=== PATIENT | male | born 1950 | race Caucasian/White ===

== ENCOUNTER 2020-02-09 09:07 | Inpatient (IN) | payer OTHER, MEDICARE ==
[~2020-02-09] VITALS: Ht 180.3 cm; Wt 114.3 kg
--- NOTE | 2020-02-09 09:20 | NUR ---
PATIENT AMBULATED TO ROOM USING A CANE AND PHYSICIAN NOTIFIED OF PATIENT STATUS
--- NOTE | 2020-02-09 10:00 | NUR ---
skin warm and dry. speaks complete sentences without difficulty. resp even unlabored. sats ra 98% a&ox3 charbel
[2020-02-09] MEDS ORDERED: NORVASC5 M1 PO (10:03)
[2020-02-09] MEDS ORDERED: AMOX/K CLAV875 M1 PO (10:03)
[2020-02-09] MEDS ORDERED: MOBIC15 MG PO (10:04)
[2020-02-09] MEDS ORDERED: CALCITRIOL0.25 MC1 PO (10:04)
[2020-02-09] MEDS ORDERED: ATENOLOL50 MG PO (10:04)
[2020-02-09] MEDS ORDERED: FUROSEMIDE20 MG PO (10:05)
[2020-02-09] MEDS ORDERED: PRILOSEC20 MG/CAP PO (10:05)
[2020-02-09] MEDS ORDERED: BENICAR40 MG PO (10:05)
[2020-02-09] MEDS ORDERED: FLONASE AL50 MCG/ACT NAB (10:06)
[2020-02-09] MEDS ORDERED: HYDROCHLOROT12.5 MG PO (10:07)
[2020-02-09] MEDS ORDERED: POTASSIUM CITR15 MEQ PO (10:07)
[2020-02-09] MEDS ORDERED: ASPIRIN81 MG PO (10:08)
[2020-02-09] MEDS ORDERED: CALCIUM 1200 PO (10:09)
[2020-02-09] MEDS ORDERED: MAGNESIUM500 M1 PO (10:10)
[2020-02-09] MEDS ORDERED: COLACE100 MG PO (10:11)
[2020-02-09] MEDS ORDERED: DORZOLAMIDE HYD1 SOL OU (10:12)
[2020-02-09] MEDS ORDERED: TRAVATAN0.0041 OU (10:12)
[2020-02-09 10:39] LABS: HEMATOCRIT 39.8 % (39.0-50.0); HEMOGLOBIN 13.2 g/dl (14.0-18.0); IMMATURE GRANULOCYTES 0.4 % (0.0-5.0); MEAN CELL VOLUME 88.8 fL CALC (80.0-100.0); MEAN CORPUSCULAR HGB 29.5 pG CALC (26.0-32.0); MEAN CORPUSCULAR HGB CONC 33.2 g/dL CAL (32.0-36.0); NEUT# 3.26 thou/uL (1.82-7.42); RED BLOOD COUNT 4.48 mill/uL (4.70-6.10); RED CELL DISTRI WIDTH 13.3 % (11.5-15.5)
[2020-02-09 10:56] LABS: ALBUMIN 3.8 g/dL (3.2-5.0); ALKALINE PHOSPHATASE 49 u/l (38-126); ANION GAP 8 (6-22 (CALC)); BILIRUBIN, TOTAL 0.8 mg/dL (0.0-1.4); BUN 24 mg/dL (8-23); BUN/CREATININE RATIO 19 (12-20 (CALC)); CARBON DIOXIDE 39 mmol/l (22-30); CHLORIDE 95 mmol/l (95-108); CREATININE 1.3 mg/dL (0.7-1.3); GFR 55 ML/MIN (>=60 (CALC)); GFR FOR AFR.AMER. > 60 ML/MIN (>=60 (CALC)); POTASSIUM 2.9 mmol/l (3.5-5.1); SGOT/AST 51 u/l (19-48); SODIUM 139 mmol/l (137-146); TOTAL PROTEIN 6.4 g/dL (6.3-8.2)
[2020-02-09 11:08] LABS: MYOGLOBIN 118 ng/mL (0 - 121)
--- NOTE | 2020-02-09 11:36 | NUR ---
PT TO CT IN STABLE CONDITION.
--- NOTE | 2020-02-09 12:25 | NUR ---
PT ADVISED OF POC FOR ADMISSION. PT VOICED UNDERSTANDING.
--- NOTE | 2020-02-09 12:37 | NUR ---
SBAR PRINTED TO FLOOR
[2020-02-09 13:12] LABS: URINE BILIRUBIN - DIPSTICK NEGATIVE (NEGATIVE); URINE BLOOD DIPSTICK TRACE-INTACT (NEGATIVE); URINE COLOR YELLOW; URINE GLUCOSE - DIPSTICK NEGATIVE (NEGATIVE); URINE KETONE NEGATIVE (NEGATIVE); URINE LEUK ESTERASE NEGATIVE (NEGATIVE); URINE NITRITE - DIPSTICK NEGATIVE (Negative); URINE PROTEIN - DIPSTICK NEGATIVE (NEG-TRACE); URINE UROBILINOGEN - DIPSTICK 0.2 E.U./dL (0.2)
--- NOTE | 2020-02-09 13:26 | NUR ---
REPORT PROVIDED TO YANET SMITH.
--- NOTE | 2020-02-09 13:30 | NUR ---
PT TO MEDSURG VIA WC. IV ABT IN PROGRESS, 02 2L/M VIA NC, TELEMETRY. PT STABLE.
[2020-02-09 13:45] VITALS: BP 142/70
--- NOTE | 2020-02-09 14:18 | NUR ---
REPORT RECEIVED FROM NAMRATA IN ED, PT ARRIVED ON UNIT @ 1338 VIA W/C TRANSPORTED BY ED STAFF, ALERT AND ORIENTED X 4, ORIENTED TO ROOM AND CALL JOSEPH, DENIES PAIN AT THIS TIME, SETTLED IN BED, VITAL SINS MEASURED AND RECORDED, WILL CONTINUE TO MONITOR.
[2020-02-09 15:57] VITALS: BP 124/67
[2020-02-09 19:00] VITALS: BP 118/64
--- NOTE | 2020-02-09 20:00 | NUR ---
PT SITTING UP IN BED, NO APPARENT DISTRESS OR DISCOMFORT. PHYSICAL ASSESMENT COMPLETE. SCHEDULED MEDICATION ADMINISTERED, SEE E-MAR. PLAN OF CARE REVIEWED, PT VERBALIZES UNDERSTANDING AND DENIES QUESTIONS. PT REQUEST REFILL OF ICE WATER AND CRANBERRY JUICE. DENIES FURTHER NEEDS AT THIS TIME. CALL JOSEPH WITHIN REACH, AGREES TO CALL PRN.
--- NOTE | 2020-02-09 23:58 | NUR ---
PT LAYING IN BED WITH EYES CLOSED, NO APPARENT DISTRESS, APPEARS TO BE SLEEPING COMFORTABLY. RESPIRATIONS REGULAR AND UNLABORED. CALL JOSEPH REMAINS WITHIN REACH.
[2020-02-10] VITALS: BP 138/64
[2020-02-10 04:00] VITALS: BP 130/77; BP 138/64
--- NOTE | 2020-02-10 04:00 | NUR ---
PT LAYING IN BED WITH EYES CLOSED, NO APPARENT DISTRESS, APPEARS TO BE SLEEPING COMFORTABLY. RESPIRATIONS REGULAR AND UNLABORED. CALL JOSEPH REMAINS WITHIN REACH.
[2020-02-10 05:51] LABS: HEMATOCRIT 44.5 % (39.0-50.0); HEMOGLOBIN 14.8 g/dl (14.0-18.0); IMMATURE GRANULOCYTES 0.3 % (0.0-5.0); MEAN CELL VOLUME 87.6 fL CALC (80.0-100.0); MEAN CORPUSCULAR HGB 29.1 pG CALC (26.0-32.0); MEAN CORPUSCULAR HGB CONC 33.3 g/dL CAL (32.0-36.0); NEUT# 4.84 thou/uL (1.82-7.42); RED BLOOD COUNT 5.08 mill/uL (4.70-6.10); RED CELL DISTRI WIDTH 12.5 % (11.5-15.5)
[2020-02-10 06:29] LABS: ALBUMIN 3.9 g/dL (3.2-5.0); ALKALINE PHOSPHATASE 57 u/l (38-126); ANION GAP 10 (6-22 (CALC)); BILIRUBIN, TOTAL 0.7 mg/dL (0.0-1.4); BUN 19 mg/dL (8-23); BUN/CREATININE RATIO 21 (12-20 (CALC)); CARBON DIOXIDE 36 mmol/l (22-30); CHLORIDE 99 mmol/l (95-108); CREATININE 0.9 mg/dL (0.7-1.3); GFR > 60 ML/MIN (>=60 (CALC)); GFR FOR AFR.AMER. > 60 ML/MIN (>=60 (CALC)); SGOT/AST 46 u/l (19-48); SODIUM 142 mmol/l (137-146); TOTAL PROTEIN 6.8 g/dL (6.3-8.2)
[2020-02-10 06:41] LABS: C-REACTIVE PROTEIN 12.7 mg/dL (0-0.9)
[2020-02-10 07:57] VITALS: BP 124/64
--- NOTE | 2020-02-10 08:14 | NUR ---
PT SEEN AWAKE, ALERT, ORIENTED X 3. IV SITE TO RAC INFILTRATED, NEW ONE PLACED TO LEFT HAND. PT EDUCATION REGARDING COVID-19 PROVIDED. NO DISTRESS.
[2020-02-10 11:00] VITALS: BP 124/65
--- NOTE | 2020-02-10 13:40 | NUR ---
PT USING IS EVERY HOUR DIRECTED. NO SHORTNESS OF BREATH NOTED.
[2020-02-10 15:00] VITALS: BP 129/67
--- NOTE | 2020-02-10 18:00 | NUR ---
PT CONTINUES AT REST IN THE BED WITHOUT COMPLAINT OR CHANGE IN STATUS.
[2020-02-10 19:30] VITALS: BP 120/71
[2020-02-11 00:05] VITALS: BP 131/68
[2020-02-11 04:20] VITALS: BP 145/72
[2020-02-11 05:03] LABS: MEAN CELL VOLUME 88.1 fL CALC (80.0-100.0); MEAN CORPUSCULAR HGB CONC 32.9 g/dL CAL (32.0-36.0); NEUT# 9.82 thou/uL (1.82-7.42); RED BLOOD COUNT 4.28 mill/uL (4.70-6.10); RED CELL DISTRI WIDTH 12.7 % (11.5-15.5)
[2020-02-11 05:15] LABS: HEMATOCRIT 37.7 % (39.0-50.0); HEMOGLOBIN 12.4 g/dl (14.0-18.0)
[2020-02-11 05:31] LABS: ALKALINE PHOSPHATASE 47 u/l (38-126); ANION GAP 8 (6-22 (CALC)); BILIRUBIN, TOTAL 0.5 mg/dL (0.0-1.4); BUN 18 mg/dL (8-23); BUN/CREATININE RATIO 22 (12-20 (CALC)); CARBON DIOXIDE 34 mmol/l (22-30); CHLORIDE 103 mmol/l (95-108); CREATININE 0.8 mg/dL (0.7-1.3); GFR > 60 ML/MIN (>=60 (CALC)); GFR FOR AFR.AMER. > 60 ML/MIN (>=60 (CALC)); POTASSIUM 3.3 mmol/l (3.5-5.1); SGOT/AST 37 u/l (19-48); SODIUM 142 mmol/l (137-146)
[2020-02-11 05:36] LABS: TOTAL PROTEIN 5.4 g/dL (6.3-8.2)
[2020-02-11 07:40] VITALS: BP 131/73
--- NOTE | 2020-02-11 09:00 | NUR ---
PT IS AWAKE, ALERT, ORIENTED X 3, PLEASANT. LUNGS CLEAR, 2 LPM NC. AMBULATORY IN ROOM WITHOUT DIFFICULTY. NO SHORTNESS OF BREATH OR OTHER COMPLAINT.
[2020-02-11 11:05] VITALS: BP 115/64
--- NOTE | 2020-02-11 13:00 | NUR ---
PT CONTINUES IN ROOM WITHOUT SHORTNESS OF BREATH OR OTHERWISE. PT USES I.S. IV INFUSES WITHOUT DIFFICULTY.
[2020-02-11 15:15] VITALS: BP 118/58
[2020-02-11 18:55] VITALS: BP 112/61
[2020-02-12] VITALS: BP 128/69
[2020-02-12 04:05] VITALS: BP 132/72
[2020-02-12 05:57] LABS: HEMATOCRIT 36.6 % (39.0-50.0); HEMOGLOBIN 12.3 g/dl (14.0-18.0); IMMATURE GRANULOCYTES 1.3 % (0.0-5.0); MEAN CELL VOLUME 89.5 fL CALC (80.0-100.0); MEAN CORPUSCULAR HGB 30.1 pG CALC (26.0-32.0); MEAN CORPUSCULAR HGB CONC 33.6 g/dL CAL (32.0-36.0); NEUT# 6.24 thou/uL (1.82-7.42); RED BLOOD COUNT 4.09 mill/uL (4.70-6.10); RED CELL DISTRI WIDTH 12.9 % (11.5-15.5)
[2020-02-12 06:24] LABS: ALBUMIN 2.9 g/dL (3.2-5.0); ALKALINE PHOSPHATASE 47 u/l (38-126); ANION GAP 6 (6-22 (CALC)); BILIRUBIN, TOTAL 0.5 mg/dL (0.0-1.4); BUN 20 mg/dL (8-23); BUN/CREATININE RATIO 22 (12-20 (CALC)); C-REACTIVE PROTEIN 4.2 mg/dL (0-0.9); CARBON DIOXIDE 34 mmol/l (22-30); CHLORIDE 106 mmol/l (95-108); CREATININE 0.9 mg/dL (0.7-1.3); GFR > 60 ML/MIN (>=60 (CALC)); GFR FOR AFR.AMER. > 60 ML/MIN (>=60 (CALC)); POTASSIUM 3.3 mmol/l (3.5-5.1); SGOT/AST 31 u/l (19-48); SODIUM 142 mmol/l (137-146); TOTAL PROTEIN 5.3 g/dL (6.3-8.2)
--- NOTE | 2020-02-12 07:10 | NUR ---
PT note Patient is screened for PT intervention and may benefit from consult if medical agrees
[2020-02-12 07:38] VITALS: BP 130/70
--- NOTE | 2020-02-12 07:38 | NUR ---
PATIENT RESTING IN BED AT THIS TIME. PATIENT ALERT AND ORIENTED. LUNG FIELD CLEAR AT THIS TIME AND O2 REMAINS ON AT 3 LITERS. PATIENT STATED HE HAD THE BEST NIGHT SLEEP WHILE USING HIS CPAP AND O2 ON. PATIENT DENIES ANY PAIN AT THIS TIME AND SHAKEEL ANY SHORTNESS OF BREATH. CALL LIGHT IS WITHIN REACH SIDERAILS UP X 2. GEOMATICS PROFESSOR DONE AT THIS TIME.
[2020-02-12 10:30] VITALS: BP 115/58
--- NOTE | 2020-02-12 12:20 | NUR ---
PATIENT IN BED AT THIS TIME DENIES ANY NEEDS CURRENTLY. DENIES PAIN O2 REMAINS ON AT THIS TIME AT 3 LITERES SIDERAILS UP X 2 CALL LIGHT WITHIN REACH.
[2020-02-12 16:00] VITALS: BP 126/56
--- NOTE | 2020-02-12 16:01 | NUR ---
PATIENT RESTING IN BED AT THIS TIME DENIES ANY NEEDS OR PAIN. SIDERAILS UP X [address] AND TELE-MONITOR REMAINS ON AT THIS TIME. PATIENT STATES HE WILL BE HAVING EYE MEDICATIONS BROUGHT INTO FACILITY TONIGHT BY FAMILY.
[2020-02-12 19:00] VITALS: BP 113/56
--- NOTE | 2020-02-12 19:10 | NUR ---
REPORT RECEIVED FROM Nomi MOON RN, CARE OF PT ASSUMED AT THIS TIME.
--- NOTE | 2020-02-12 21:30 | NUR ---
PT AWAKE, LAYING IN BED, 200ML CLEAR YELLOW URINE EMPTIED FROM URINAL. PHYSICAL ASSESMENT COMPLETE. SCHEDULED MEDICATIONS ADMINISTERED. PLAN OF CARE REVIEWED, PT VERBALIZES UNDERSTANDING AND DENIES QUESTIONS. DENIES ANY NEEDS AT THIS TIME WHEN ASKED. CALL JOSEPH WITHIN REACH, AGREES TO CALL PRN.
[2020-02-13] VITALS: BP 135/69
--- NOTE | 2020-02-13 00:15 | NUR ---
PT LAYING IN BED WITH EYES CLOSED, NO APPARENT DISTRESS, APPEARS TO BE SLEEPING COMFORTABLY. RESPIRATIONS REGULAR AND UNLABORED. CALL JOSEPH REMAINS WITHIN REACH.
[2020-02-13 04:00] VITALS: BP 152/77
--- NOTE | 2020-02-13 04:17 | NUR ---
PT LAYING IN BED WITH EYES CLOSED, NO APPARENT DISTRESS, APPEARS TO BE SLEEPING COMFORTABLY. RESPIRATIONS REGULAR AND UNLABORED. CALL JOSEPH REMAINS WITHIN REACH.
[2020-02-13 05:43] LABS: HEMATOCRIT 38.9 % (39.0-50.0); HEMOGLOBIN 13.1 g/dl (14.0-18.0); IMMATURE GRANULOCYTES 2.3 % (0.0-5.0); MEAN CELL VOLUME 88.2 fL CALC (80.0-100.0); MEAN CORPUSCULAR HGB 29.7 pG CALC (26.0-32.0); MEAN CORPUSCULAR HGB CONC 33.7 g/dL CAL (32.0-36.0); NEUT# 5.75 thou/uL (1.82-7.42); RED BLOOD COUNT 4.41 mill/uL (4.70-6.10); RED CELL DISTRI WIDTH 12.9 % (11.5-15.5)
[2020-02-13 05:49] LABS: ALBUMIN 2.8 g/dL (3.2-5.0); ALKALINE PHOSPHATASE 54 u/l (38-126); BILIRUBIN, TOTAL 0.4 mg/dL (0.0-1.4); BUN 17 mg/dL (8-23); BUN/CREATININE RATIO 20 (12-20 (CALC)); C-REACTIVE PROTEIN 2.8 mg/dL (0-0.9); CHLORIDE 108 mmol/l (95-108); CREATININE 0.9 mg/dL (0.7-1.3); GFR > 60 ML/MIN (>=60 (CALC)); GFR FOR AFR.AMER. > 60 ML/MIN (>=60 (CALC)); SGOT/AST 42 u/l (19-48); SODIUM 141 mmol/l (137-146); TOTAL PROTEIN 5.1 g/dL (6.3-8.2)
[2020-02-13 06:28] LABS: ANION GAP 9 (6-22 (CALC)); CARBON DIOXIDE 27 mmol/l (22-30); POTASSIUM 3.2 mmol/l (3.5-5.1)
[2020-02-13 07:00] VITALS: BP 119/67
--- NOTE | 2020-02-13 07:00 | NUR ---
PATIENT RESTING IN BED AT THIS TIME. PATIENT DENIES ANY PAIN AND DOES EXHIBIT A NON-PRODUCTIVE COUGH AT THIS TIME. PATIENT HAS O2 ON AT 3 LITERS AND SPO2 IS 97% AT THIS TIME. SIDERAILS ARE UP X 2 CALL LIGHT IS WITHIN REACH WIRE WELDER IS IN PLACE AT THIS TIME. PATIENT IS ALERT AND ORIENTED.
--- NOTE | 2020-02-13 09:05 | NUR ---
PATIENT UP ON BEDSIDE AFTER SHOWER. DEBBIE SPO2 AT ROOM AIR IS 96%. ALISSAN PREVIOUSLY WAS ON 3 L OF 02 AND NOW IS TITRATED DOWN TO 2 L'S AT THIS TIME AND WILL RE-CHECK SPO2 AGAIN IN ONE HOUR.
[2020-02-13 11:36] VITALS: BP 120/60
--- NOTE | 2020-02-13 11:54 | NUR ---
PATIENT SITTING UP AT BEDSIDE AT THIS TIME DENIES ANY NEEDS. O2 ON AT 2LITERS AND SPO2 IS 94%. PATIENT DENIES ANY SHORTNESS OF BREATH AND DENIES PAIN AT THIS TIME. CALL LIGHT WITHIN REACH SIDERAILS UP X 2.
[2020-02-13 15:00] VITALS: BP 114/67
--- NOTE | 2020-02-13 16:05 | NUR ---
PATIENT RESTING DENIES ANY NEEDS AT THIS TIME CALL O2 ON 2 LITERS AT THIS TIME SHAKEEL ANY SHORTNESS OF BREATH AND OR PAIN. TELE MONITOR IN PLACE CALL LIGHT WITHIN REACHI SIDERAILS UP X 2.
[2020-02-13 19:00] VITALS: BP 136/70
--- NOTE | 2020-02-13 21:24 | NUR ---
PT MEDICATED ORDERS PROVIDE. ASSESSMENT COMPLETED AT THIS TIME. PT WAS ASLEEP WITH CPAP ON, BUT AWOKE TO MY VOICE. HE IS WEARING OXYGEN NC UNDER HIS CPAP. OXYGEN SET AT 2L WITH SAT LEVELS 97% OXYGEN TITRATED DOWN TO 1L WITH MONITOR CLOSELY FOR RESPONSE. PT UP USING URINAL AT THIS TIME, NO S/O DISTRESS OR SOB. CALL LIGHT IS AT BEDSIDE AND PT INSTRUCTED TO CALL IF NEEDS ARISE.
--- NOTE | 2020-02-13 21:50 | NUR ---
OXYGEN SAT LEVEL STABLE @96% ON 1L OXYGEN. URINAL EMPTIED OF 400CC OF CLEAR YELLOW URINE AT THIS TIME.
[2020-02-14] VITALS: BP 130/71
--- NOTE | 2020-02-14 00:28 | NUR ---
OXYGEN SAT LEVEL MAINTAINED ON 1L 02 @94% AND UP. NO S/O DISTRESS NOTED. PT HAS O2 NC ON WITH CPAP.
[2020-02-14 04:00] VITALS: BP 156/83
--- NOTE | 2020-02-14 05:29 | NUR ---
PT OXYGEN SAT LEVELS 97% ON 1L. TITRATED OFF OXYGEN SUSTAINING 95-97% ON RA AT THIS TIME. WILL CONTINUE TO MONITOR FOR RESPONSE. OXYGEN NC LEFT AT BEDSIDE WITHIN REACH FOR OXYGEN PRN FOR SOB NEEDED, PT VERBALIZED UNDERSTANDING. URINAL EMPTIED OF 800CC OF CLEAR YELLOW URINE AT THIS TIME. PT DENIES ANY OTHER NEEDS. CALL LIGHT W/IN REACH AND PT WAS ENCOURAGED TO CALL.
[2020-02-14 06:07] LABS: ALBUMIN 2.9 g/dL (3.2-5.0); ALKALINE PHOSPHATASE 51 u/l (38-126); ANION GAP 7 (6-22 (CALC)); BUN 15 mg/dL (8-23); BUN/CREATININE RATIO 19 (12-20 (CALC)); CARBON DIOXIDE 29 mmol/l (22-30); CHLORIDE 107 mmol/l (95-108); CREATININE 0.8 mg/dL (0.7-1.3); GFR > 60 ML/MIN (>=60 (CALC)); GFR FOR AFR.AMER. > 60 ML/MIN (>=60 (CALC)); POTASSIUM 3.1 mmol/l (3.5-5.1); SGOT/AST 46 u/l (19-48); SODIUM 140 mmol/l (137-146); TOTAL PROTEIN 5.4 g/dL (6.3-8.2)
[2020-02-14 06:09] LABS: BILIRUBIN, TOTAL 0.6 mg/dL (0.0-1.4)
--- NOTE | 2020-02-14 07:20 | NUR ---
REPORT RECEIVED FROM YANET LOPEZ.
[2020-02-14 09:00] VITALS: BP 135/61
--- NOTE | 2020-02-14 09:00 | NUR ---
PT RESTING IN SEMI FOWLERS POSITION,A&O X3;VS OBTAINED AND ASSESSMENT COMPLETED;PT DENIES ANY CURRENT PAIN OR DISCOMFORTS,PAIN SCALE AND REPORTING EDUCATED;RESPIRATIONS EVEN AND UNLABORED ON RA,O2 SATS @ 96% AT THIS TIME;NON-PRODUCTIVE COUGH;ABDOMEN SOFT ON PALPATION AND ACTIVE IN ALL 4 QUADRANTS;WEAK PEDAL PULSES;SKIN INTACT;TELE MONITORING IN PLACE;#20G TO LEFT HAND INFUSING NS @ 20ML/HR,SITE APPEARS HEALTHY;PT REMAINS IN AIR/CONTACT PRECAUTIONS DUE TO COVID19 DX;PT DENIES ANY ADDITIONAL NEEDS AT THIS TIME AND IS ENCOURAGED TO CALL FOR ASSISTANCE IF NEEDED;FALL PRECAUTIONS IN PLACE WITH BED IN THE LOWEST POSITION AND CALL LIGHT IN REACH;WILL CONTINUE TO MONITOR
--- NOTE | 2020-02-14 09:40 | NUR ---
AT BEDSIDE DISCUSSING POC.
[2020-02-14 10:30] VITALS: BP 125/77
[2020-02-14] MEDS ORDERED: Levaquin PO (11:24)
[2020-02-14] MEDS ORDERED: DEXAMETHASON6 MG PO (11:24)
--- NOTE | 2020-02-14 12:20 | NUR ---
PT RESTING IN SEMI FOWLERS POSITION;RESPIRATIONS EVEN AND UNLABORED ON RA;PT DENIES ANY CURRENT PAIN OR DISCOMFORTS;TELE MONITORING IN PLACE;IV SITE PATENT AND INFUSING NS PER ORDER, IV K ADMINISTERED AT THIS TIME;OXYGEN QUALIFICATION TEST COMPLETED AND O2 SATS REMAINED @ 96%;PT RE-POSITIONED INTO BED;PT DENIES ANY ADDITIONAL NEEDS;CALL LIGHT IN REACH;WILL CONTINUE TO MONITOR
[2020-02-14 15:20] VITALS: BP 125/60
--- NOTE | 2020-02-14 15:40 | NUR ---
PT RESTING IN SEMI FOWLERS POSITION;RESPIRATIONS EVEN AND UNLABORED ON RA;PT DENIES ANY CURRENT PAIN OR DISCOMFORTS;TELE MONITORING IN PLACE;IV SITE PATENT AND ABX STARTED AT THIS TIME;PT UNDERSTANDS PLANS FOR D/C HOME AFTER ABX INFUSED AND VERBALIZES UNDERSTANDING;PT DENIES ANY ADDITIONAL NEEDS AT THIS TIME AND IS ENCOURAGED TO CALL FOR ASSISTANCE IF NEEDED;CALL LIGHT IN REACH;WILL CONTINUE TO MONITOR
--- NOTE | 2020-02-14 16:50 | NUR ---
ALL DISCHARGE INSTRUCTIONS PROVIDED AT THIS TIME;PT INSTRUCTED TO SELF ISOLATE DUE TO COVID19 DX, TAKE ABX AND STEROIDS DIRECTED AND COMPLETE COURSE, F/U WITH PCP IN 1 WEEK, AND HAVE LABWORK IN 1 WEEK. LAB ORDER, RX FOR LEVAQUIN AND DECADRON PROVIDED;PT VERBALIZES UNDERSTANDING AND DENIES ANY ADDITIONAL QUESTIONS OR NEEDS;IV SITE REMOVED WITH CATHETER INTACT AND TELE MONITORING D/C;WHEELCHAIR TO BE PROVIDED FOR D/C HOME;PT TO TRANSPORT SELF HOME.WILL CONTINUE TO MONITOR
--- NOTE | 2020-02-14 17:07 | NUR ---
Discharge instructions given. Patient verbalizes understanding of same. Discharged in stable condition via Wheelchair to Home with *Other. All belongings sent with pt. PT TRANSPORTED TO [facility] IN STABLE CONDITION VIA WHEELCHAIR ACCOMPANIED BY JUANA DEVINE;ALL BELONGINGS LEFT WITH PT.PT TO TRANSPORT SELF HOME.
== END 2020-02-14 17:04 | disposition home or self-care (01) | DRG 177 ==
LOC: ED 09:07 → ED-I 12:16 → ED 12:32 → MS2 12:33
PROVIDERS: Emergency Medicine; Nurse Practitioner Family; ADMIT Internal Medicine; ATTEND Internal Medicine
PROC: XW033E5 Introduction of Remdesivir Anti-infective into Peripheral Vein, Percutaneous Approach, New Technology Group 5 (ICD-10-PCS; principal; 2020-02-10)
DX: U07.1 COVID-19 (principal); J12.89 Other viral pneumonia; J96.00 Acute respiratory failure, unspecified whether with hypoxia or hypercapnia; I10 Essential (primary) hypertension; E87.6 Hypokalemia; E07.9 Disorder of thyroid, unspecified
CPT/HCPCS: J1650; Q9967

== ENCOUNTER 2020-09-30 05:56 | Observation (INO) | payer OTHER ==
[~2020-09-30] VITALS: Ht 180.3 cm; Wt 118.0 kg
[2020-09-30] VITALS (8 sets, daily range): BP systolic 119–145; BP diastolic 62–92
[~2020-09-30 05:56] MED LIST: AMOX/K CLAV875 M1 PO; ASPIRIN81 MG PO; ATENOLOL50 MG PO; BENICAR40 MG PO; CALCITRIOL0.25 MC1 PO; CALCIUM 1200 PO; COLACE100 MG PO; DEXAMETHASON6 MG PO; DORZOLAMIDE HYD1 SOL OU; FLONASE AL50 MCG/ACT NAB; FUROSEMIDE20 MG PO; HYDROCHLOROT12.5 MG PO; Levaquin PO; MAGNESIUM500 M1 PO; MOBIC15 MG PO; NORVASC5 M1 PO; POTASSIUM CITR15 MEQ PO; PRILOSEC20 MG/CAP PO; TRAVATAN0.0041 OU
--- NOTE | 2020-09-30 07:00 | NUR ---
RECIEVED FOR CARE. AT BEDSIDE
--- NOTE | 2020-09-30 08:00 | NUR ---
RESTING QUIETLY WITH SPOUSE AT BEDSIDE
[2020-09-30] MEDS ORDERED: TESTOST CYP200 MG/ML IM (08:03)
--- NOTE | 2020-09-30 08:25 | NUR ---
RECEIVED REPORT FROM YUE SIEGEL
[2020-09-30 08:38] LABS: HEMATOCRIT 42.8 % (39.0-50.0); IMMATURE GRANULOCYTES 0.5 % (0.0-5.0); MEAN CELL VOLUME 89.2 fL CALC (80.0-100.0); MEAN CORPUSCULAR HGB 31.3 pG CALC (26.0-32.0); NEUT# 8.17 thou/uL (1.82-7.42); RED BLOOD COUNT 4.8 mill/uL (4.70-6.10); RED CELL DISTRI WIDTH 13.8 % (11.5-15.5)
[2020-09-30 09:18] LABS: ALKALINE PHOSPHATASE 74 u/l (38-126); ANION GAP 12 (6-22 (CALC)); BILIRUBIN, TOTAL 0.7 mg/dL (0.0-1.4); BUN 19 mg/dL (8-23); BUN/CREATININE RATIO 15 (12-20 (CALC)); CARBON DIOXIDE 32 mmol/l (22-30); CHLORIDE 97 mmol/l (95-108); CREATININE 1.3 mg/dL (0.7-1.3); GFR 55 ML/MIN (>=60 (CALC)); GFR FOR AFR.AMER. > 60 ML/MIN (>=60 (CALC)); LIPASE 148 u/l (23-300); SGOT/AST 46 u/l (19-48); SODIUM 138 mmol/l (137-146)
[2020-09-30 09:30] LABS: ALBUMIN 3.8 g/dL (3.2-5.0); TOTAL PROTEIN 6.5 g/dL (6.3-8.2)
--- NOTE | 2020-09-30 09:38 | NUR ---
PT REPORTS PAIN IMPROVED TO 1-2/10.
--- NOTE | 2020-09-30 10:40 | NUR ---
PT RESTING IN BED, NO COMPLAINTS AT THIS TIME
[2020-09-30 11:38] LABS: URINE BILIRUBIN - DIPSTICK NEGATIVE (NEGATIVE); URINE BLOOD DIPSTICK NEGATIVE (NEGATIVE); URINE COLOR YELLOW; URINE GLUCOSE - DIPSTICK NEGATIVE (NEGATIVE); URINE KETONE NEGATIVE (NEGATIVE); URINE LEUK ESTERASE NEGATIVE (NEGATIVE); URINE PH 7.5 (4.5-8.0); URINE PROTEIN - DIPSTICK NEGATIVE (NEG-TRACE); URINE SPECIFIC GRAVITY 1.015; URINE UROBILINOGEN - DIPSTICK 0.2 E.U./dL (0.2)
[2020-09-30 11:46] LABS: URINE NITRITE - DIPSTICK NEGATIVE (Negative)
--- NOTE | 2020-09-30 12:00 | NUR ---
PT AWAITING BED ASSIGNMENT
--- NOTE | 2020-09-30 13:52 | NUR ---
PT RESTING COMFORTABLY, NO COMPLAINTS
--- NOTE | 2020-09-30 14:25 | NUR ---
ATTEMPTED REPORT NEED TO CALL AGAIN, RN BUSY
--- NOTE | 2020-09-30 14:46 | NUR ---
ATTEMPTED REPORT AGAIN, RN STILL BUSY, WILL CALL BACK
--- NOTE | 2020-09-30 15:01 | NUR ---
RECIEVED REPORT FROM YANET SHARMA
--- NOTE | 2020-09-30 15:05 | NUR ---
GAVE REPORT TO STEFFI RN, PT TRANSPORTED VIA WHEELCHAIR TO FLOOR
--- NOTE | 2020-09-30 15:11 | NUR ---
PT ARRIVED TO [facility] ROOM 275 VIA WHEELCHAIR ACCOMPAINED BY ER STAFF. PT IS A/O X3. ASSESSMENT AND VITALS COMPLETED. RESPIRATIONS ARE EVEN AND UNLABORED ON ROOM AIR. LUNG SOUNDS CLEAR. HEART RHYTHM NORMAL. BOWEL SOUNDS ARE ACTIVE. PULSES STRONG. #20G LAC INFUSING WITH IVF PER ORDER, SITE REMAINS HEALTHY AND PATENT. SKIN INTACT. PT COMPLAINS OF 4/10 PAIN, TORADOL ADMINISTERED. HOME CPAP AT BEDSIDE. PT ORIENTED TO ROOM AND CALL SYSTEM. NKDA NOTED. ALLERGY BAND APPLIED. PT DENIES OF ANY ADDITIONAL NEEDS AT THIS TIME. PT INFORMED OF CYSTOSCOPY WITH DR BLANC. PT VERBLAIZED UNDERSTANDING. ALL SAFETY PRECAUTIONS ARE IN PLACE WITH CALL LIGHT IN REACH. WILL CONTINUE TO MONITOR.
--- NOTE | 2020-09-30 16:12 | NUR ---
DR HWANG AT BEDSIDE
--- NOTE | 2020-09-30 17:50 | NUR ---
PT TRANSPORTED TO OR VIA STRETCHER ACCOMPAINED IN STABLE CONDITION ACCOMPAINED BY OR STAFF.
--- NOTE | 2020-09-30 22:37 | NUR ---
PT RETURNED FROM THE OR AT 2114. PT IS PAIN FREE AT THIS TIME AND STATES THAT HE IS VERY HUNGRY. POTASSIUM STARTED IV AT THIS TIME. PHYSICAL ASSESMENT COMPLETE. SCHEDULED MEDICATIONS AND PRN MEDICATION ADMINISTERED, SEE E-MAR. PLAN OF CARE REVIEWED, PT DENIES QUESTIONS, VERBALIZES UNDERSTANDING. ITEMS WITHIN REACH, BED LOCKED IN LOW POSITION W/ BEDRAILS UP X2. CALL JOSEPH WITHIN REACH, AGREES TO CALL PRN.
--- NOTE | 2020-10-01 00:52 | NUR ---
PT LAYING WATCHING HIS CELL. APPEARS COMFORTABLE AND IN NO DISTRESS. PAIN STATES HE ONLY HAS MILD PAIN THAT DOES NOT REQUIRE MEDICATION. RESPIRATIONS REGULAR AND UNLABORED. ITEMS REMAIN WITHIN REACH, CALL JOSEPH REMAINS WITHIN REACH. BED REMAINS LOCKED AND IN LOW POSITION WITH BEDRAILS UP X2. WILL CONTINUE TO MONITOR.
--- NOTE | 2020-10-01 04:03 | NUR ---
PT RESTING IN BED, NO SIGNS OF DISTRESS NOTED, RESP EVEN AND UNLABORED. PT VOICES NO NEEDS OR COMPLAINTS AT THIS TIME. CALL LIGHT IN REACH, CONTINUE TO MONITOR.
[2020-10-01 04:58] VITALS: BP 108/65
[2020-10-01 06:13] LABS: HEMATOCRIT 41.7 % (39.0-50.0); HEMOGLOBIN 14.1 g/dl (14.0-18.0); MEAN CELL VOLUME 92.1 fL CALC (80.0-100.0); MEAN CORPUSCULAR HGB 31.1 pG CALC (26.0-32.0); MEAN CORPUSCULAR HGB CONC 33.8 g/dL CAL (32.0-36.0); RED BLOOD COUNT 4.53 mill/uL (4.70-6.10); RED CELL DISTRI WIDTH 14.3 % (11.5-15.5)
[2020-10-01 06:15] LABS: CREATININE 1.5 mg/dL (0.7-1.3); POTASSIUM 2.9 mmol/l (3.5-5.1)
--- NOTE | 2020-10-01 07:00 | NUR ---
RECIEVED REPORT FROM YANET AMAYA
[2020-10-01 07:18] VITALS: BP 147/89
--- NOTE | 2020-10-01 07:18 | NUR ---
PT RESTING IN SEMI FOWLERS POSITION. PT IS A/O X3. ASSESSMENT AND VITALS COMPLETED. RESPIRATIONS ARE EVEN AND UNLABORED WITH NO DISTRESS NOTED. LUNG SOUNDS ARE CLEAR. HEART RHYTHM NORMAL. BOWEL SOUNDS ARE ACTIVE. PULSES STRONG. #20G RAC INFUSING WITH IVF PER ORDER, SITE REMAINS HEALTHY AND PATENT. SKIN INTACT.TRACE EDEMA NOTED. PT IS VOIDING, KATHY NOTED.PT COMPLAINS OF BURNING WITH URINATING. PT DENIES OF ANY ADDITONAL PAINS OR DISCOMFORTS AT THIS TIME. ALL SAFETY PRECAUTIONS ARE IN PLACE WITH CALL LIGHT IN REACH. WILL CONTINUE TO MONITOR.
[2020-10-01 10:30] VITALS: BP 139/81
--- NOTE | 2020-10-01 11:47 | NUR ---
PT RESTING ON SOFA. RESPIRATIONS ARE EVEN AND UNLABORED ON ROOM AIR. #20G RAC REMAINS IN PLACE. PT DENIES OF ANY PAINS OR DISCOMFORTS AT THIS TIME. ALL SAFETY PRECAUTIONS ARE IN PLACE WITH CALL LIGHT IN REACH. WILL CONTINUE TO MONITOR.
--- NOTE | 2020-10-01 12:00 | NUR ---
DR HWANG AND WILLY,ANRP AT BEDSIDE.
[2020-10-01] MEDS ORDERED: TAMSULOSIN0.4 MG PO (12:56)
[2020-10-01] MEDS ORDERED: PERCOCET 5/321 COMBO PO (12:57)
[2020-10-01] MEDS ORDERED: ZOFRAN4 MG/TAB PO (12:57)
--- NOTE | 2020-10-01 14:04 | NUR ---
PT EDUCATED ON DC INSTUCTIONS AND NEW MEDICATIONS SENT TO [facility].PT VERBALIZED UDERSTANDING. IV REMOVED WITH CATH STILL INTACT. TRANSPORTATION TO BE ARRANGED
--- NOTE | 2020-10-01 14:10 | NUR ---
Discharge instructions given. Patient verbalizes understanding of same. Discharged in stable condition via Wheelchair to Home with staff. All belongings sent with pt. PT DC HOME IN STABLE CONDITION VIA WHEELCHAIR WITH ALL DC INSTRUCTIONS AND PERSONAL BELONGINGS. NUMBER TO DR BLANC OFFICE GIVEN TO PT.
== END 2020-10-01 14:09 | disposition home or self-care (01) | DRG 661 ==
LOC: ED 05:56 → ED-I 11:54 → ED 12:25 → MS2 12:26
PROVIDERS: Family Medicine; ADMIT Hospitalist; ATTEND Hospitalist
PROC: 0T768DZ Dilation of Right Ureter with Intraluminal Device, Via Natural or Artificial Opening Endoscopic (ICD-10-PCS; principal; 2020-09-30)
PROC: BT1DZZZ Fluoroscopy of Right Kidney, Ureter and Bladder (ICD-10-PCS; 2020-09-30)
DX: N13.2 Hydronephrosis with renal and ureteral calculous obstruction (principal); E87.6 Hypokalemia; I10 Essential (primary) hypertension; N20.0 Calculus of kidney; E03.9 Hypothyroidism, unspecified; N40.0 Benign prostatic hyperplasia without lower urinary tract symptoms; E89.2 Postprocedural hypoparathyroidism; H40.9 Unspecified glaucoma; Z79.82 Long term (current) use of aspirin; Z87.442 Personal history of urinary calculi; Z20.822 Contact with and (suspected) exposure to COVID-19
CPT/HCPCS: C1769; G0378; J0131; J1956; Q9967

== ENCOUNTER 2021-08-03 09:42 | Inpatient (IN) | payer MEDICARE, OTHER ==
[2021-08-03] VITALS (46 sets, daily range): BP systolic 85–132; BP diastolic 49–80
[~2021-08-03] VITALS: Ht 180.3 cm; Wt 136.0 kg
[~2021-08-03 09:42] MED LIST changes: +PERCOCET 5/321 COMBO PO; +POTASSIUM CHLO10 MEQ PO; -POTASSIUM CITR15 MEQ PO; +TAMSULOSIN0.4 MG PO; +TESTOST CYP200 MG/ML IM; +TRAVATAN Z0.004 % OU; -TRAVATAN0.0041 OU; +ZOFRAN4 MG/TAB PO
--- NOTE | 2021-08-03 09:50 | NUR ---
PATIENT ESCORTED TO ROOM VIA WHEELCHAIR IN NAD. CONNECTED TO MONITOR AND PROVIDER NOTIFIED OF PATIENT STATUS.
[2021-08-03 10:22] LABS: HEMOGLOBIN 14.6 g/dl (14.0-18.0); IMMATURE GRANULOCYTES 0.3 % (0.0-5.0); MEAN CORPUSCULAR HGB 25.5 pG CALC (26.0-32.0); MEAN CORPUSCULAR HGB CONC 31.7 g/dL CAL (32.0-36.0); NEUT# 15.61 thou/uL (1.82-7.42); RED BLOOD COUNT 5.72 mill/uL (4.70-6.10)
[2021-08-03 10:31] LABS: MEAN CELL VOLUME 80.4 fL CALC (80.0-100.0)
[2021-08-03 10:37] LABS: ALBUMIN 3.9 g/dL (3.2-5.0); CREATININE 1.9 mg/dL (0.7-1.3); MAGNESIUM 1.6 mg/dL (1.6-2.3); TOTAL PROTEIN 7.2 g/dL (6.3-8.2)
[2021-08-03 10:38] LABS: BILIRUBIN, TOTAL 1.3 mg/dL (0.0-1.4); POTASSIUM 4.1 mmol/l (3.5-5.1)
[2021-08-03 10:41] LABS: ACT PARTIAL THROMBO TIME 27.8 SECONDS (20.0-32.5); INTERNATIONAL NORMALIZED RATIO 1.2 RATIO (0.7-1.3); PROTHROMBIN TIME 12.8 SECONDS (9.0-12.5)
[2021-08-03 11:04] LABS: URINE BILIRUBIN - DIPSTICK NEGATIVE (NEGATIVE); URINE BLOOD DIPSTICK LARGE (NEGATIVE); URINE COLOR YELLOW; URINE GLUCOSE - DIPSTICK NEGATIVE (NEGATIVE); URINE KETONE NEGATIVE (NEGATIVE); URINE PROTEIN - DIPSTICK 100 mg/dL (NEG-TRACE); URINE SPECIFIC GRAVITY 1.025; URINE UROBILINOGEN - DIPSTICK 0.2 E.U./dL (0.2)
[2021-08-03 11:05] LABS: URINE LEUK ESTERASE SMALL (NEGATIVE); URINE NITRITE - DIPSTICK NEGATIVE (Negative)
[2021-08-03 11:11] LABS: URINE BACTERIA FEW hpf; URINE WBC 50-100 WBC/hpf (0-5)
--- NOTE | 2021-08-03 11:32 | NUR ---
Reassessment of patient completed. No distress noted.
[2021-08-03] MEDS ORDERED: ELIQUIS5 MG PO (12:06)
--- NOTE | 2021-08-03 14:42 | NUR ---
PT TO ROOM AT 1250, AO, LUNGS CLEAR, BS ACTIVE WITH MIDLINE ABD HERNIA NOTED, AT BEDSIDE, PHARMACY REVIEWED MEDS WITH PT, PT HAS BEEN UP TO BEDSIDE TO USE URINAL, STEADY GAIT BUT NEEDS ASSIST WITH CORDS/WIRES, DENIES WEAKNESS/DIZZINESS, TO BRING IN HOME CPAP AND EYE DROPS NOT AVAIL FROM PHARMACY
[2021-08-03] MEDS ORDERED: BRIMONIDINE0.2 % OU (14:49)
--- NOTE | 2021-08-03 18:50 | NUR ---
REPORT RECIEVED FROM DILEEP HOLT. PATIENT ALERT AND ORIENTED X4 TEMPERATURE 99.8. ROOM TEMPERATURE ADJUSTED FOR COMFORT. DISCUSSED PLAN OF CARE. VITAL SIGNS STABLE ATHLETIC SCOUT SHOWS ATRIAL FIB HR IN THE 70S'PATIENT VERY PLEASANT AND COOPERATIVE. NO COMPLAINTS OF PAIN AT THIS TIME.
--- NOTE | 2021-08-03 21:40 | NUR ---
VOIDED 250 CC OF CLEAR KATHY URINE. TYLENOL 650 MG GIVEN FOR 99.8 TEMPERATURE
--- NOTE | 2021-08-03 23:52 | NUR ---
PATIENT RESTING QUIETLY WITH EYES CLOSED CRDIAC MONITOR SHOW AFIB HR 68 WITH OCCASSIONAL PVC B/P 99/67 CARDIZEM DRIP TITRATED TO 5 MH/HR. PTT 85.3 HEPARIN REPAIN AT 2000 UNITS/HR WILL RECHECK PTT AT 0500.
[2021-08-04] VITALS (70 sets, daily range): BP systolic 81–164; BP diastolic 41–119
--- NOTE | 2021-08-04 01:32 | NUR ---
RESTING QUIETLY IN BED . RESPIRATIONS EVEN AND UNLABORED HR 70 IN ATRIAL FIB WITH OCCASSINAL PVC O2 SAT 96%
--- NOTE | 2021-08-04 03:06 | NUR ---
VOIDED 300 CC KATHY URINE NO ACUTE DISTRESS NOTED VITAL SIGNS STABLE
--- NOTE | 2021-08-04 04:55 | NUR ---
LYING IN BED RELAXED POSTURE NO ACUTE DISTRESS NOTED. GRANITE SETTER SHOWS ATRIAL FIB VITAL SIGNS STABLE. DENIES PAIN.
[2021-08-04 05:27] LABS: IMMATURE GRANULOCYTES 0.5 % (0.0-5.0); MEAN CELL VOLUME 82.2 fL CALC (80.0-100.0); MEAN CORPUSCULAR HGB 25.7 pG CALC (26.0-32.0); MEAN CORPUSCULAR HGB CONC 31.3 g/dL CAL (32.0-36.0); NEUT# 12.02 thou/uL (1.82-7.42); RED BLOOD COUNT 4.78 mill/uL (4.70-6.10); RED CELL DISTRI WIDTH 18.1 % (11.5-15.5)
[2021-08-04 05:32] LABS: HEMATOCRIT 39.3 % (39.0-50.0); HEMOGLOBIN 12.3 g/dl (14.0-18.0)
[2021-08-04 05:37] LABS: CREATININE 2.2 mg/dL (0.7-1.3)
--- NOTE | 2021-08-04 06:00 | NUR ---
PTT 74.S NO CHANGES IN HEPARIN DRIP. CONDITION IMPROVED WILL CONTINUE PLAN OF CARE
--- NOTE | 2021-08-04 07:00 | NUR ---
RECEIVE REPORT FROM JOHN HOLT.
--- NOTE | 2021-08-04 08:00 | NUR ---
PATIENT ALERT AND ORIENTED X3. VITAL SIGN STABLE AT THIS TIME. PATIENT RESTING IN BED PLEASANT. PATIENT IS EDUCATED ABOUD MEDICATIONS AND NURSING PLAN FOR TODAY. PATIENT REFER UNDERSTAND. FALL AND SAFERTY PRECAUTIONS IN PLACE. CALL LIGHT IS WITHIN REACH.
--- NOTE | 2021-08-04 09:41 | NUR ---
PRELIMINARY BLOOD CULTURES SHOW GRAM POSITIVE COCCI IN 3/[address] ESPINOZA. NEW ORDER FOR VANCOMYCIN, PHARM TO DOSE.
--- NOTE | 2021-08-04 11:52 | NUR ---
PATIENT RESTING IN BED STABLE AT THIS TIME. HEPARIN DRIP AND CARDIZEN DRIP IS DISCONTINUE TODAY MORNING 08:58 FOR DOCTOR OLGA. PATIENT TOLERATED WELL. HR IS BETTER AND VITAL SING STABLE AT THIS TIME.
--- NOTE | 2021-08-04 11:55 | NUR ---
S: REN KILLIAN is a 70 M who presents with bacteremia. He has a history of arthritis, hypertension, thyroid problems, BPH, skin cancer, kidney stones. All medications in patient's chart were reviewed. O: VS: BP 117/69 mmHg, P 75 beats/min, RR 20 breaths/min, T 97.5 F W 133 kg, HT 71 inches, Scr= 2.2 mg/dL, CrCl= 44.7 ml/min A: Blood culture from 08/03/2021 preliminary results show gram positive cocci in 3 of 4 sets. Urine culture from 08/03/2021 is pending. P: Patient is on Zosyn 3.375 iv q6h. Vancomycin ordered for pharmacy to dose. Continue Vancomycin 1500 mg IV Q24H. Vancomycin trough is drawn before the 4th dose on 08/07/2021 at 0930. Vancomycin goal trough is between <15-20 mcg/ml>. Pharmacy will follow and or advise on antibiotics use as needed.
--- NOTE | 2021-08-04 16:33 | NUR ---
PATIENT STABLE AT THIS TIME. TYLENOL FOR FEVER IS DONE. PATIENT RESTING IN BED. BREATHING EVEN AND UNLABORED. FALL AND SAFETY PRECAUTIONS IN PLACE. CALL LIGHT WITHIN REACH.
--- NOTE | 2021-08-04 19:05 | NUR ---
HEAD-TO-TOE ASSESSMENT COMPLETED. PT PLACED ON HOME CPAP MACHINE PER PT REQUEST. VSS, O2 SAT 90%, HR 86 A FIB. ROUNDING COMPLETED. SAFETY PRECAUTIONS IN PLACE.
--- NOTE | 2021-08-04 20:41 | NUR ---
PT C/O N/V. ZOFRAN IV GIVEN. PT VOMITED ~50 CC GEEN EMISIS. AFTER NAUSEA PASSED PT GOT UP TO BC TO ATTEMPT TO HAVE BM. PT HAD ONLY A SMEAR.
--- NOTE | 2021-08-04 21:40 | NUR ---
PT STATED HE FELT LIKE HE HAD A FEVER AGAIN. TEMPATURE TAKEN ORALLY 101.4. 650 MG TYLENOL GIVEN.
--- NOTE | 2021-08-04 23:36 | NUR ---
PT APPEARS TO BE RESTING COMFORTABLY. CPAP IN PLACE. VSS, O2 94%, HR 91 A FIB. FEVER CAME DOWN TO 100.2 AFTER GIVING TYLENOL.
[2021-08-05] VITALS (24 sets, daily range): BP systolic 78–145; BP diastolic 62–113
--- NOTE | 2021-08-05 01:19 | NUR ---
ROUNDING COMPLETED. THIS NURSE EXPLAINED TO PT THAT THE ZOSYN HAS BEEN STOPPED. FLAGYL AND CEFEPIME ADDED. PT STATES THE N/V HAS RESOLVED. CURRENT TEMP 98.8. SAFETY PRECAUTIONS MAINTAINED.
--- NOTE | 2021-08-05 03:22 | NUR ---
ROUNDING COMPLETED. PT APPEARS TO BE RESTING COMFORTABLY. CPAP IN PLACE. VSS, O2 SATS 92%, HR 93 BPM A FIB. SAFETY PRECAUTIONS MAINTAINED.
--- NOTE | 2021-08-05 05:16 | NUR ---
ROUNDING COMPLETED. LABS DRAWN BY LASER SYSTEMS ENGINEER. PT DRINKING HOT TEA AND RELAXING. SAFETY PRECAUTIONS MAINTAINED.
[2021-08-05 05:31] LABS: HEMATOCRIT 39.3 % (39.0-50.0); HEMOGLOBIN 12.2 g/dl (14.0-18.0); IMMATURE GRANULOCYTES 0.3 % (0.0-5.0); MEAN CELL VOLUME 83.1 fL CALC (80.0-100.0); MEAN CORPUSCULAR HGB 25.8 pG CALC (26.0-32.0); NEUT# 10.44 thou/uL (1.82-7.42); RED BLOOD COUNT 4.73 mill/uL (4.70-6.10); RED CELL DISTRI WIDTH 18.3 % (11.5-15.5)
[2021-08-05 05:38] LABS: ALBUMIN 3.3 g/dL (3.2-5.0); CREATININE 2.1 mg/dL (0.7-1.3); POTASSIUM 3.9 mmol/l (3.5-5.1); TOTAL PROTEIN 6.1 g/dL (6.3-8.2)
[2021-08-05 05:39] LABS: BILIRUBIN, TOTAL 0.7 mg/dL (0.0-1.4); MAGNESIUM 2.1 mg/dL (1.6-2.3)
--- NOTE | 2021-08-05 06:22 | NUR ---
PT REPORTS FEELING IF HE MAY HAVE A FEVER AGAIN. TEMP TAKEN ORALLY AND WAS 100.9. TYLENOL GIVEN. PT STATES FEELING TIRED AGAIN AND WOULD LIKE TO WAIT UNTIL LATER THIS MORNING TO HAVE A BATH.
--- NOTE | 2021-08-05 06:50 | NUR ---
COMPLETE BATH GIVEN W/ SOME ASSIST FORM PT. PT UP TO CHAIR THIS MORNING.
--- NOTE | 2021-08-05 11:50 | NUR ---
REPORT RECEIVED FROM SALENA FALK LYING IN SUPINE POSITION IN BED, AWAKE ALERT AND ORIENTED, DENIES DISCOMFORT, IV ABT INFUSING TO # 18 CATHETER IN LAC, CARDIAC MONITORING IN PROGRESS, ALL NEEDS ADDRESSED, CALL JOSEPH IN REACH AND BED LOCKED IN LOWEST POSITION. SPOUSE AT BEDSIDE.
--- NOTE | 2021-08-05 13:56 | NUR ---
PT C/O FEELING IF HIS TEMP IS ELAVATING, ON MEASUREMENT OF TEMPORAL TEMP = 97.3, WHEN MEASURED ORALLY = 101.3, COOL COMPRESS APPLIED TO FOREHEAD, PT IS NPO AT THIS TIME AWAITING PROCEDURE.
--- NOTE | 2021-08-05 15:00 | NUR ---
PT INFORMED OF PROCEDURE AND STATED UNDERSTANDING, ASSISTED TTO W/C AND TRANSPORTED OFF UNIT TO [facility], SPOUSE AT BEDSIDE.
--- NOTE | 2021-08-05 16:45 | NUR ---
TRANSPORTED BACK TO UNIT FROM PROCEDURE VIA W/C, SETTLED IN ROOM, C/O BEING THIRSTY, ORAL FLUIDS OFFERED, CALL JOSEPH IN REACH.
--- NOTE | 2021-08-05 20:27 | NUR ---
HEAD-TO-TOE ASSESSMENT COMPLETED. O2 SATS 90% RA, HR 97 BPM A FIB, TEMP. 100.2 ORALLY. WILL CONTINUE TO MONITOR TEMP. MEDICATIONS GIVEN. PT APPLIED HOME CPAP MASK AND STATED HE WOULD LIKE TO SLEEP. SAFETY PRECAUTIONS IN PLACE.
--- NOTE | 2021-08-05 22:23 | NUR ---
PT WAS SLEEPING WEARING HOME CPAP. O2 SAT 85%. RT WAS CALLED TO ASSESS PT AND HOME MACHINE. RT ADDED 2 L/MIN O2 TO HOME CPAP MACHINE. PT O2 SAT 90%.
[2021-08-06] VITALS (21 sets, daily range): BP systolic 93–147; BP diastolic 63–117
--- NOTE | 2021-08-06 00:11 | NUR ---
ROUNDING COMPLETED. PT RESTING UP IN THE CHAIR. HOME CPAP ON W/ O2 2 L/MIN. VSS, SATS 91%, HR 93 BPM A FIB, MOST RECENT TEMP 100.9. SAFETY PRECAUTIONS MAINTAINED.
--- NOTE | 2021-08-06 02:37 | NUR ---
ROUNDING COMPLETED. PT RESTING IN BED. HOME CPAP ON W/ O2 AT 2 L/MIN, VSS, SATS 94%, HR 99 BPM A FIB. SAFETY PRECAUTIONS MAINTAINED.
--- NOTE | 2021-08-06 04:30 | NUR ---
PT TAKEN DOWN TO CT VIA WHEELCHAIR BY THIS NURSE ON 3 L/MIN N/C.
--- NOTE | 2021-08-06 05:00 | NUR ---
PT BACK FROM CT. PT TOLERATED SCAN WELL. PT RESTING COMFORTABLY IN BED AT THIS TIME. VSS ON 3 L/MIN O2, SATS 90%, HR 94 BPM A FIB, TEMP 97.7. SAFETY PRECAUTIONS IN PLACE.
--- NOTE | 2021-08-06 05:35 | NUR ---
PT C/O SOME SOB, O2 SAT 85%. THIS NURSE TITRATED O2 UP TO 5 L/MIN N/C. O2 SAT CURRENTLY 90%. LUNG SOUNDS REMAIN CLEAR, SLIGHTLY DIMINISHED IN BILATERAL BASES. WILL CONTINUE TO MONITOR RESPIRATORY STATUS.
[2021-08-06 05:40] LABS: HEMATOCRIT 39.5 % (39.0-50.0); HEMOGLOBIN 12.3 g/dl (14.0-18.0); MEAN CORPUSCULAR HGB 25.8 pG CALC (26.0-32.0); MEAN CORPUSCULAR HGB CONC 31.1 g/dL CAL (32.0-36.0); RED BLOOD COUNT 4.76 mill/uL (4.70-6.10); RED CELL DISTRI WIDTH 18.1 % (11.5-15.5)
[2021-08-06 06:01] LABS: MAGNESIUM 2.3 mg/dL (1.6-2.3); POTASSIUM 4.1 mmol/l (3.5-5.1)
--- NOTE | 2021-08-06 06:25 | NUR ---
THIS NURSE CALLED DR. ESPINOZA R/T PT SEEMING TO BE FVO. PT C/O INCREASED SOB, OXYGEN DEMAND HAS GONE UP FROM 3 L/MIN TO 5 L/MIN N/C, SLIGHT CRACKLES IN LLL. DR. ESPINOZA ORDERED 40 MG OF LASIX ONCE AND CHANGED FLUIDS TO KVO RATE.
--- NOTE | 2021-08-06 14:25 | NUR ---
PT REPORT RECIEVED FROM ICU . PT RESTING IN HIGH FOWLERS POSITION. PT A/OX3 ASSESSMENT AND VS COMPLETED. PT HEART RHYTHM IRREGULAR WITH TELE IN PLACE. RESPIRATIONS EVEN AND UNLABORED ON 5L NC . BOWEL SOUNDS HYPOACTIVE. IV SITE NOTED , RIGHT HAND AND LAC INFUSING WITH NORMAL SALINE @80. PT DENIES WOUNDS. PT TO BE ON CARDIAC DIET . PT SHOWS NO SIGNS OF PITTING EDEMA. PT AMBULATES 1 ASSISST. FAMILY AT BEDSIDE DENIES ADDITIONAL NEEDS BESIDES CUP OF WATER /PROVIDED. ALL SAFETY PRECAUTIONS IN PLACE.
--- NOTE | 2021-08-06 16:11 | NUR ---
PT RESTING IN HIGH FOWLERS POSITION. PT DENIES ADDITIONAL NEEDS PT APPLIED EXTENSION FOR OXYGEN . ALL SAFETY PRECAUTIONS IN PLACE.
--- NOTE | 2021-08-06 20:00 | NUR ---
RECEIVED REPORT FROM NURSE PATTON, ASSUMED PATIENT CARE, PATIENT RESTING IN BED, WATCHING TV, HOOKED TO HOME CPAP MACHINE CONNECTED TO OXYGEN, HAS IV SITE ON LAC NS @ 10CC/HR INFUSING WELL, AND G 20 RT WRIST SALINE LOCK, HOOKED ON TELEMETRY AFIB 83, LUNG SOUNDS CLEAR/ DIMINISHED, ABDOMEN DISTENDED SOFT ACTIVE BOWEL SOUNDS, NOT IN DISTRESS AT THIS TIME, PLEASANT MOOD, CALL LIGHT AT REACH.
[2021-08-07] VITALS (7 sets, daily range): BP systolic 130–150; BP diastolic 78–84
--- NOTE | 2021-08-07 | NUR ---
PATIENT RESTING IN BED,EYES CLOSED, BREATHING UNLABORED NO DISCOMFORTS NOTED AT THIS TIME.
--- NOTE | 2021-08-07 04:29 | NUR ---
PATIENT RESTING IN BED, CONNECTED ON HOME CPAP BREATHING UNLABORED, CALL LIGHT IN REACH.
[2021-08-07 05:53] LABS: CREATININE 1.6 mg/dL (0.7-1.3); HEMATOCRIT 38.2 % (39.0-50.0); MAGNESIUM 2.2 mg/dL (1.6-2.3); MEAN CELL VOLUME 82.7 fL CALC (80.0-100.0); MEAN CORPUSCULAR HGB CONC 31.4 g/dL CAL (32.0-36.0); POTASSIUM 4.1 mmol/l (3.5-5.1); RED BLOOD COUNT 4.62 mill/uL (4.70-6.10); RED CELL DISTRI WIDTH 18.1 % (11.5-15.5)
--- NOTE | 2021-08-07 07:00 | NUR ---
PT REPORT RECIEVED FROM [employer] SALES REPRESENTATIVE.
--- NOTE | 2021-08-07 08:00 | NUR ---
PT RESTING IN SEMI FOWLERS POSITION PT A/OX3 ASSESSMENT AND VS COMPLETED. HEART RHYHTM IRREGULAR . AFIB REAGUSTED LED ON PT HEART MONITOR SHOWS . SR. RESPIRATIONS ON 5L OXYGEN . BOWLE SOUNDS ACTIVE. PT IV SITE NOTED . PT DENIES ADDITIONAL NEEDS AT THE TIME ALL SAFETY PRECAUTIONS IN PLACE WITH CALL LIGHT IN REACH
--- NOTE | 2021-08-07 12:56 | NUR ---
PT RESTING IN HIGH FOWLERS POSITION . RESPIRATIONS EVEN AND UNLABORED ON 5L; OXYGEN TO BE TITRATED TO BE OFF OXYGEN SAFETY PRECAUTIONS IN PLACE.
[2021-08-07 13:15] LABS: URINE BILIRUBIN - DIPSTICK NEGATIVE (NEGATIVE); URINE BLOOD DIPSTICK LARGE (NEGATIVE); URINE CLARITY SL CLOUDY; URINE COLOR YELLOW; URINE GLUCOSE - DIPSTICK NEGATIVE (NEGATIVE); URINE KETONE NEGATIVE (NEGATIVE); URINE LEUK ESTERASE TRACE (Negative); URINE NITRITE - DIPSTICK NEGATIVE (Negative); URINE PROTEIN - DIPSTICK 30 mg/dL (NEG-TRACE); URINE UROBILINOGEN - DIPSTICK 0.2 E.U./dL (0.2)
[2021-08-07 13:16] LABS: URINE BACTERIA RARE hpf; URINE EPITHELIAL CELLS FEW EPI/hpf (0-FEW); URINE MUCUS FEW hpf (NONE-FEW); URINE WBC 0-2 WBC/hpf (0-5)
--- NOTE | 2021-08-07 13:32 | NUR ---
Pt seen this am for treatment. He was resting in currie position, reported sleeping 12 hours with CPAP and feeling much better. Pt performed manual resist ex to BLE in supine including heelslide/hip ext, hip add/abb in hooklying, SAQ 2 x 10 reps. Quad and glut sets x 10 reps 5 sec hold. Pt moved supine to sit using bed rail and head of bed partially elevated. Sit to and from and transfers were indep withou LOB noted. Gait 2x 60' with CGA and IV pole pushed by therapist. Pt BP 145/89 supine, 149/98 sitting, 148/92 after 1st walk and 133/95 after second walk. HR 94, 95, 87, 90. 02sats 95 to 96%. Pt performed LE ex in sitting and was instructed in gradual progression of activity and AROM ex he can perform during the day. Pt was left resting in chair with present, call bustos in reach, present and ENTERPRISE RECORDS ANALYST in to give pt a shower. A- Pt mobility improving with 5l [address] [facility] 20 home with OP pulmonary rehab. P- will continue to follow and progress gait with monitioring of medical status.
--- NOTE | 2021-08-07 16:00 | NUR ---
PATIENT AWAKE, RESTING ON RECLINER. PATIENT'S PRESENT IN THE ROOM. NO SIGNS OF DISTRESS NOTED OR VERBALZIED AT THIS TIME. EMPTIED URINAL. BED SIDE TABLE AND CALL LIGHT WITHIN REACH.
--- NOTE | 2021-08-07 19:15 | NUR ---
PATIENT RESTING IN BED AT THIS TIME. PATIENT HAS CPAP ON AT THIS TIME. PATIENT DEINES ANY PAIN AT THIS TIME. PATIENT DOES PRESENT WITH TRACE EDEMA IN LOWER EXTREMITIES. TELE MONIOTOR ON AND READING A-FIB. SIDERAILS ARE UP CALL LIGHT IS WIHTIN REACH WILL CONTINUE TO MONITOR.
--- NOTE | 2021-08-07 23:31 | NUR ---
PATIENT LAYING IN BED WITH C-PAP ON AT THIS TIME. DENEIS ANY NEEDS SIDERAILS ARE UP WILL CONTINUE TO MONITOR.
[2021-08-08] VITALS (7 sets, daily range): BP systolic 131–147; BP diastolic 65–86
--- NOTE | 2021-08-08 03:40 | NUR ---
PATIENT RESTING IN BED AT THIS TIME ALERT AND ORIENTED X 3. PATIENT DEINES ANY PAIN AND OR NEEDS CURRENTLY. PATIENT HAS CPAP ON AT THIS TIME AND INCENTIVE SIPROMETER AT BEDSIDE. SIDERAILS ARE UP CALL LIGHT IS WITHIN REACH.
[2021-08-08 06:32] LABS: HEMATOCRIT 38.2 % (39.0-50.0); HEMOGLOBIN 12.2 g/dl (14.0-18.0); MEAN CELL VOLUME 81.8 fL CALC (80.0-100.0); MEAN CORPUSCULAR HGB 26.1 pG CALC (26.0-32.0); MEAN CORPUSCULAR HGB CONC 31.9 g/dL CAL (32.0-36.0); RED BLOOD COUNT 4.67 mill/uL (4.70-6.10); RED CELL DISTRI WIDTH 18.1 % (11.5-15.5)
[2021-08-08 07:09] LABS: CREATININE 1.6 mg/dL (0.7-1.3); MAGNESIUM 2.2 mg/dL (1.6-2.3); POTASSIUM 3.8 mmol/l (3.5-5.1)
--- NOTE | 2021-08-08 08:00 | NUR ---
PATIENT IS A/OX3, ABLE TO MAKE NEEDS KNOWN TO STAFF. DENIES PAIN AT THIS TIME. 3L NC, STATED HE IS FEELING MUCH BETTER TODAY THAN HE WAS YESTERDAY. 3MM PERRLA. CLEAR SPEECH. CLEAR LUNG SOUNDS.TELLE AFIB, CONTROLLED NO S/S. ACTIVE BOWEL SOUNDS. SOFT DISTENDED ABDOMEN. NON TENDER. 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 CLEAR YELLOW URINE IN URINAL. SAFETY MEASURES IN PLACE. CALL LIGHT IN REACH. WILL COTNINUE TO MONITOR PER HOSPITAL'S POLICY,
--- NOTE | 2021-08-08 12:00 | NUR ---
AT BEDSIDE, PT COMING IN ROOM.
--- NOTE | 2021-08-08 12:53 | NUR ---
Pt seen this am for treatment, he was resting in currie position in bed. Pt reported on 2L of 02 now. Pt performed gentle manual resist ex to BLE in supine including heel slides, hip extension, SAQ, hip add/abd 2 x 10 reps. Isometric gluts and quads 10 reps with 5 sec hold. Pt moved supine to sit indep without bed rail, head of bed slightly elevated. Sit to and from stand/transfers were indep. Pt ambulated 2 x 100' without assist device, therapist managing 02 tank and IV pole. BP 151/93, 141/91 and 145/89, 02 sats stable at 95%, HR 87, 82,81. Pt was left resting in recliner, call bustos in reach, and MD present. A- Pt moving well 02 sats stable on 2L without c/o SOB/dyspnea. [facility] 20 home P-Pt for d/c tomorrow.
--- NOTE | 2021-08-08 14:30 | NUR ---
PATIENT DECREASED TO 1L NC, 96% RESTING IN BED.
--- NOTE | 2021-08-08 16:00 | NUR ---
AT BEDSIDE. ON ROOM AIR, DENIES ANY SOB.
--- NOTE | 2021-08-08 19:05 | NUR ---
REPORT RECEIVED FROM Dave JOHN RN
--- NOTE | 2021-08-08 20:55 | NUR ---
CALL FROM ED REGARDING ELEVATED HR IN THE 130'S, PATIENT UP TO THE SIDE OF THE BED USING URINAL AT THIS TIME. HR BACK TO 90'S.
[2021-08-09 00:01] VITALS: BP 144/71
--- NOTE | 2021-08-09 01:00 | NUR ---
PATIENT ANTIBIOTIC HUNG AT THIS TIME. DENIES ANY CURRENT NEEDS. OXYGEN SATURATION 93% ON ROOM AIR.
[2021-08-09 03:39] VITALS: BP 151/95
--- NOTE | 2021-08-09 04:30 | NUR ---
PATIENT RESTING COMOFRTABLY. ANTIBIOTIC HUNG AT THIS TIME. CALL LIGHT AND BEDSIDE TABLE WITHIN REAC
[2021-08-09 05:03] VITALS: BP 151/95
[2021-08-09 05:03] LABS: HEMATOCRIT 39.3 % (39.0-50.0); HEMOGLOBIN 12.1 g/dl (14.0-18.0); MEAN CELL VOLUME 83.3 fL CALC (80.0-100.0); MEAN CORPUSCULAR HGB 25.6 pG CALC (26.0-32.0); MEAN CORPUSCULAR HGB CONC 30.8 g/dL CAL (32.0-36.0); RED BLOOD COUNT 4.72 mill/uL (4.70-6.10); RED CELL DISTRI WIDTH 18.5 % (11.5-15.5)
[2021-08-09 05:19] LABS: ANION GAP 12 (6-22 (CALC)); BUN 30 mg/dL (8-23); BUN/CREATININE RATIO 21 (12-20 (CALC)); CARBON DIOXIDE 26 mmol/l (22-30); CHLORIDE 106 mmol/l (95-108); CREATININE 1.4 mg/dL (0.7-1.3); GFR FOR AFR.AMER. > 60 ML/MIN (>=60 (CALC)); GFR OTHER RACES 50 ML/MIN (>=60 (CALC)); POTASSIUM 3.6 mmol/l (3.5-5.1); SODIUM 140 mmol/l (137-146)
[2021-08-09 06:32] VITALS: BP 169/89
--- NOTE | 2021-08-09 08:00 | NUR ---
patient is a/ox3, able to make needs known to staff, stated that he feels great. room air. vitals stable. denies pain at this time. clear lung sounds, active bowel sounds. soft non tender abdomen. trace edema ble. strong pulses. afib on telle. strong equal hand mortgage banker. no arm or leg drifts. safety measures in place. call light in reach. will continue to moitor per hospital's policy.
[2021-08-09 10:18] VITALS: BP 139/88
--- NOTE | 2021-08-09 10:30 | NUR ---
completed walk test, passed.
[2021-08-09] MEDS ORDERED: LEVAQUIN750 M1 PO ×2 (11:21→11:33)
--- NOTE | 2021-08-09 14:11 | NUR ---
REVIEWED AND EDUCATED PATIENT AND AT BEDSIDE ON D/C PAPERWORK. WAITING ON ANTIBOTICS TO COMPLETE.
== END 2021-08-09 14:54 | disposition home or self-care (01) | DRG 871 ==
LOC: ED 09:42 → ICU 11:25 → ED-I 11:25 → ICU 11:25 → ED 11:25 → ICU 08-04 20:58 → MS2 08-04 20:58 → ICU 08-04 20:58 → MS2 08-06 14:29
PROVIDERS: Internal Medicine; Nurse Practitioner; ADMIT Internal Medicine; ATTEND Hospitalist
DX: A41.81 Sepsis due to Enterococcus (principal); J18.9 Pneumonia, unspecified organism; N39.0 Urinary tract infection, site not specified; N17.9 Acute kidney failure, unspecified; R65.20 Severe sepsis without septic shock; I48.91 Unspecified atrial fibrillation; I10 Essential (primary) hypertension; N40.0 Benign prostatic hyperplasia without lower urinary tract symptoms; H40.9 Unspecified glaucoma; R09.02 Hypoxemia; N20.0 Calculus of kidney; E89.2 Postprocedural hypoparathyroidism; Z79.01 Long term (current) use of anticoagulants; Z87.440 Personal history of urinary (tract) infections; Z20.822 Contact with and (suspected) exposure to COVID-19; Z87.442 Personal history of urinary calculi
CPT/HCPCS: J0692; J0878; J1644; J3370; Q3014

== ENCOUNTER 2021-10-17 06:56 | Day surgery (SDC) | payer MEDICARE, OTHER ==
[~2021-10-17] VITALS: Ht 180.3 cm; Wt 127.0 kg
[~2021-10-17 06:56] MED LIST changes: +BRIMONIDINE0.2 % OU; +ELIQUIS5 MG PO; +LEVAQUIN750 M1 PO; +MELOXICAM15 MG PO; +TUMERIC OTC; +VITAMIN D5000 UNIT PO
[2021-10-17 11:07] VITALS: BP 139/89
== END 2021-10-17 10:55 | disposition home or self-care (01) ==
LOC: ORM 06:56
PROVIDERS: ATTEND Urology
PROC: 0TC48ZZ Extirpation of Matter from Left Kidney Pelvis, Via Natural or Artificial Opening Endoscopic (ICD-10-PCS; principal; 2021-10-17)
PROC: 0T778DZ Dilation of Left Ureter with Intraluminal Device, Via Natural or Artificial Opening Endoscopic (ICD-10-PCS; 2021-10-17)
DX: N20.0 Calculus of kidney (principal); I10 Essential (primary) hypertension; E03.9 Hypothyroidism, unspecified; N40.1 Benign prostatic hyperplasia with lower urinary tract symptoms; N13.8 Other obstructive and reflux uropathy
CPT/HCPCS: J0131; J1956

== ENCOUNTER 2021-12-22 09:28 | Day surgery (SDC) | payer MEDICARE ==
[~2021-12-22] VITALS: Ht 180.3 cm; Wt 122.5 kg
[~2021-12-22 09:28] MED LIST changes: +PROTONIX20 M1 PO; +VITAMIN D5000 UNI1 PO
[2021-12-22 12:13] VITALS: BP 121/74
== END 2021-12-22 12:33 | disposition home or self-care (01) ==
LOC: ENDO 09:28
PROVIDERS: ATTEND Internal Medicine Gastroenterology
PROC: 0DJD8ZZ Inspection of Lower Intestinal Tract, Via Natural or Artificial Opening Endoscopic (ICD-10-PCS; principal; 2021-12-22)
DX: Z12.11 Encounter for screening for malignant neoplasm of colon (principal); K64.8 Other hemorrhoids; I48.91 Unspecified atrial fibrillation; Z83.71 Family history of colonic polyps; Z79.01 Long term (current) use of anticoagulants; Z87.19 Personal history of other diseases of the digestive system